=== PATIENT | male | born 1975 | race Caucasian/White ===

== ENCOUNTER 2023-02-21 01:43 | Emergency (ER) | payer OTHER ==
[~2023-02-21] VITALS: Ht 172.7 cm; Wt 117.9 kg
--- NOTE | 2023-02-21 01:55 | NUR ---
BIBSELF W/ C/O KIDNEY STONE X10 DAYS, C/O RT FLANK PAIN. PT IS AAOX4, PLACED COMFORTABLY IN BED. VITALS CHECKED.
--- NOTE | 2023-02-21 02:00 | NUR ---
UNABLE TO PROVIDE URINE AT THIS TIME.
[2023-02-21] MEDS ORDERED: KETOROLAC TROMETHAMINE INJ 30 MG/ML VIAL IV ONE (02:30)
[2023-02-21] MEDS ORDERED: IV NS 0.9% 1,000 ML BAG IV ONE (02:30)
--- NOTE | 2023-02-21 02:35 | NUR ---
20GA TO LAC INSERTED. IVF STARTED. PT REFUSED TORADOL, "DOESN'T WORK FOR ME." Addendum: 02/21/23 at 0247 by ANDIE 20GA TO LAC INSERTED. IVF STARTED. PT REFUSED TORADOL, "DOESN'T WORK FOR ME." AWARE.
[2023-02-21] MEDS ORDERED: KETOROLAC TROMETHAMINE INJ 30 MG/ML VIAL ONE (02:36)
[2023-02-21 02:42] LABS: BASOPHILS % (AUTO) 0.2 % (0.0-2.0); EOSINOPHILS % (AUTO) 3.7 % (0.0-6.0); HEMATOCRIT 37 % (39-51); HEMOGLOBIN 12.2 g/dL (13.5-17.5); LYMPHOCYTES # (AUTO) 0.7 K/uL (0.8-4.8); LYMPHOCYTES % (AUTO) 6.3 % (20.0-44.0); MEAN CORPUSCULAR HGB CONC 33 g/dl (31.0-36.0); MEAN CORPUSCULAR VOLUME 89 fL (80-96); MONOCYTES # (AUTO) 0.8 K/uL (0.1-1.30); MONOCYTES % (AUTO) 6.4 % (2.0-12.0); NEUTROPHILS # (AUTO) 9.9 K/uL (1.8-8.9); NEUTROPHILS % (AUTO) 83.4 % (43.0-81.0); PLATELET COUNT (AUTO) 249 K/uL (150-450); RED BLOOD CELL COUNT(AUTO) 4.21 MIL/uL (4.5-6.0); WHITE BLOOD COUNT (AUTO) 11.8 K/uL (4.3-11.0)
[2023-02-21 02:51] LABS: POTASSIUM 4.6 mmol/L (3.5-5.1)
--- NOTE | 2023-02-21 03:04 | NUR ---
PT BACK FROM CT. NEEDS MET.
[2023-02-21] MEDS ORDERED: KETO10TA2 PO (05:33)
--- NOTE | 2023-02-21 06:40 | NUR ---
PATIENT COMPLAINING OF SEVERE PAIN AND ASKING FOR PAIN MEDICATION. DR WILLIAMSON MADE AWARE.
--- NOTE | 2023-02-21 06:42 | NUR ---
PT BEING REMINDED THAT WE NEED URINE SAMPLE. PATIENT BECAME UPSET AND KEPT ON SHOUTING AT STAFF
--- NOTE | 2023-02-21 07:53 | NUR ---
IV removed. Catheter intact and site benign. Pressure and 4x4 applied to site. No bleeding noted.
--- NOTE | 2023-02-21 08:01 | NUR ---
Patient discharged to home in stable condition. Written and verbal after care instructions given. Patient verbalizes understanding of instruction.
[2023-02-21 08:02] VITALS: BP 141/71
--- NOTE | 2023-02-21 08:02 | NUR ---
Patient refused imaging CD and left facility before it could be provided
== END 2023-02-21 08:03 | disposition home or self-care (01) ==
LOC: ER 01:48
DX: N20.0 Calculus of kidney (principal); R10.9 Unspecified abdominal pain; Z87.442 Personal history of urinary calculi; Z60.2 Problems related to living alone
CPT/HCPCS: 99284; 74176; 96360; 85025; 80048; 36415; J7030; J1885